=== PATIENT | female | born 1980 | race Caucasian/White ===

== ENCOUNTER 2019-02-28 13:57 | Emergency (ER) | payer SELFPAY ==
[~2019-02-28] VITALS: Ht 154.9 cm; Wt 73.0 kg
== END 2019-02-28 14:07 | disposition home or self-care (01) ==
LOC: ED 13:57
DX: M25.571 Pain in right ankle and joints of right foot (principal)

== ENCOUNTER 2019-11-16 14:31 | Emergency (ER) | payer OTHER ==
[~2019-11-16] VITALS: Ht 149.9 cm; Wt 77.1 kg
[~2019-11-16 14:31] MED LIST: LAMICTAL100 MG PO; LITHOBID300 MG PO; PRAZOSIN HCL2 MG PO
[2019-11-16] MEDS ORDERED: REMERON45 M1 PO (14:38)
== END 2019-11-16 14:46 | disposition home or self-care (01) ==
LOC: ED 14:31
DX: R05 Cough (principal)

== ENCOUNTER 2020-01-03 05:35 | Day surgery (SDC) | payer OTHER ==
[~2020-01-03] VITALS: Ht 149.9 cm; Wt 77.1 kg
[~2020-01-03 05:35] MED LIST changes: +KLONOPIN0.5 MG PO; +REMERON45 M1 PO
[2020-01-03] MEDS ORDERED: VENTOLIN HFA18 GM INH (05:52)
--- NOTE | 2020-01-03 06:13 | NUR ---
PT TEARFUL, STATES FEELING "ANXIOUS." SIG OTHER AT BEDSIDE. PT PROVIDED TISSUES AND REASSURED. CALL LIGHT WITHIN REACH.
--- NOTE | 2020-01-03 07:59 | NUR ---
PT TEARFUL I ENTERED HER RM. PT STATED SHE HAS ANXIETY ISSUES, AND NEVER LEAVES HER HOME. PT HAS HAD PREVIOUS SURGERIES, WILL RETURN SHORTLY. GAVE ENCOURAGEMENT TO PT, SHE ALLOWED ME TO PRAY FOR HER. WILL CONTINUE TO FOLLOW NEEDED
--- NOTE | 2020-01-03 08:39 | NUR ---
PT RESTING IN BED WITH FLUIDS INFUSING VIA PUMP. PT STATES SHE WOULD LIKE TO USE THE RESTROOM. PUMP UNPLUGGED FROM WALL AND PT ASSISTED TO BATHROOM. PT BACK TO BED, PUMP PLUGGED IN AND TX PROVIDED NEW WARM BLANKETS. CALL LIGHT WITHIN REACH. SIG OTHER AT BEDSIDE.
--- NOTE | 2020-01-03 09:40 | NUR ---
PT CONT TO REST IN BED, WATCHING TV WITH SPOUSE AT BEDSIDE. PT IV WNL, PT DOES NOT COMPLAIN OF ANY BURNING/DISCOMFORT AT INSERTION SITE. PT DOES STATE SKIN FEELS "DRY" ABOVE OPSITE, PROVIDED SMALL AMOUNT OF LOTION TO HELP. CALL LIGHT WITHIN REACH.
--- NOTE | 2020-01-03 10:48 | NUR ---
CHECKED PATIENT. PATIENT SLEEPING. DID NOT WAKE PATIENT.
--- NOTE | 2020-01-03 11:45 | NUR ---
ASSISTED UP TO BR AND BACK TO BED. IV PATENT, INFUSION COMPLETE.
--- NOTE | 2020-01-03 11:52 | NUR ---
LAB IN TO DRAW BLOOD.
--- NOTE | 2020-01-03 13:25 | NUR ---
PT RESTING IN BED, DENIES ANY NEEDS AT THIS TIME. CALL LIGHT WITHIN REACH, SIG OTHER OUT OF ROOM.
--- NOTE | 2020-01-03 15:26 | NUR ---
01/03/20 1526 Sheets,Ambika 1517 PT ARRIVED TO PACU ON 6L VIA MASK, RESP EVEN AND UNLABROED WITH JAW THRUST TO MAINTAIN AIRWAY AND ORAL AIRWAY IN PLACE. VSS.
--- NOTE | 2020-01-03 16:13 | NUR ---
PT ARRIVES TO DS RM 4 FROM PACU DROSWSY, EASY TO AROUSE WITH VERBAL STIMULI. PT RESP EVEN AND UNLABORED, SATS GREATER THAN 94% ON 2L NC. PT STATES CHEST "FEELS BETTER" AFTER BREATHING TREATMENT. PT DENIES NAUSEA. RATES PAIN IN ABD /10 "IT HURTS." SCD'S IN PLACE AND PUMPING. CALL LIGHT WITHIN REACH. PT ASKS ABOUT SIG OTHER. SIG OTHER IS NOTIFIED OF PT BACK TO RM.
[2020-01-03] MEDS ORDERED: NORCO 10-325 T1 EACH PO (16:37)
--- NOTE | 2020-01-03 17:08 | NUR ---
PT RESTING IN BED WITH SIG OTHER AT BEDSIDE. CUCO OBRIEN REMAINS ON WARM. PT DENIES ANY NAUSEA, TOLERATES CRACKERS AND WATER. PT RATES PAIN 8/10 IN RUQ SITES, MEDICATED PER EMAR. PT PROVIDED JELLO PER REQUEST. PT ENCOURAGED TO USE CALL LIGHT WITH URGE TO VOID. CALL LIGHT WITHIN REACH.
--- NOTE | 2020-01-03 17:28 | NUR ---
PT UP TO BATHROOM WITH RN ASSIST. STEADY GAIT. PT ABLE TO VOID 350 MLS YELLOW URINE WITH NO PROBLEMS. PT BACK TO RM 5, IV REMOVED WNL, TIP IN TACT. PT DRESSES SELF WITH SIG OTHER IN , INSTRUCTED TO OPEN CURTAIN WHEN FINISHED.
--- NOTE | 2020-01-03 17:30 | NUR ---
DC INSTRUCTIONS GIVEN IN PRESENCE OF PT AND SIG OTHER. HARD COPY PAIN PRESCRIPTION GIVEN TO PT IN DC FOLDER. ALL QUESTIONS ADDRESSED. PT DC'S VIA WC TO MAIN ENTRANCE OF HOSPTIAL HOME WITH SIG OTHER.
--- NOTE | 2020-01-04 06:47 | OR ---
[facility] [address] [place], [place] [address] Signed DATE OF OPERATION: 01/03/2020 SURGEON: Leonarda Nassar MD PREOPERATIVE DIAGNOSIS: Cholecystitis with cholelithiasis (19 mm, 9 mm). POSTOPERATIVE DIAGNOSIS: Cholecystitis with cholelithiasis (19 mm, 9 mm). PROCEDURE: Laparoscopic cholecystectomy with intraoperative cholangiogram. ESTIMATED BLOOD LOSS: None. FINDINGS: Reshma indeed had two stones in her gallbladder. She had chronically inflamed and thickened gallbladder wall. Intraoperative cholangiogram was unremarkable. INDICATIONS: Reshma is a 39-year-old female, who came 2 years ago with significant loose neon green stool within 20 to 30 minutes after eating. She said that is probably the worst. She had been to her primary care provider. She had an ultrasound showing one 19 mm and one 9 mm stone in the neck of her gallbladder. They did not move. The gallbladder at that time was not particularly thickened and the common bile duct was unremarkable. She has had ongoing significant daily symptoms. She finally was asked to come back and see me with respect to the above. She came into the office with her fiance. I gave them a brochure on the gallbladder. We looked that carefully page by page. They understand the location and function of the gallbladder. We discussed laparoscopic versus open cholecystectomy. We also reviewed the expected intraop and postop course. We did review the risks including, but not limited to bleeding, infection, scarring, change in contour of the skin, damage to bowel, damage to main bile duct, incisional hernias, and other unforeseen comorbidities. She had expressed understanding and wished to proceed. PROCEDURE NOTE: I met with Reshma this morning in our preop area. Her potassium remained low. Consequently, we moved her to the end of our day and we gave her 40 mEq IV potassium throughout the morning. Repeat potassium was up at 3.8. After answering all Reshma's questions, we had taken her into the operating room and placed in the supine position. Electronically Signed By: LEONARDA NASSAR MD 01/04/20 0647 PATIENT NAME: RESHMA MILLER OPERATIVE REPORT DATE OF : 82 REPORT #: [id number] PHYSICIAN: LEONARDA NASSAR MD PCP: NATALIA BRYANT PA-C REPORT IS CONFIDENTIAL AND NOT TO BE RELEASED WITHOUT AUTHORIZATION [facility] [address] [place] [id number] Signed She was placed under general endotracheal tube anesthesia. She was given her preoperative antibiotics along with subcutaneous heparin. SCDs were utilized. She was then prepped and draped in the usual sterile fashion. After this, all trocars were placed in the usual positions under direct visualization of camera without difficulty. The gallbladder was grasped and elevated in the right upper quadrant. It was mildly thickened. She had some mild inflammatory changes down around the neck of the gallbladder. We had taken pictures throughout for photodocumentation. The area of the cystic duct was cleared bluntly with a [place] dissector. The intraoperative cholangiocatheter was inserted into the cystic duct. An intraoperative cholangiogram was then performed and found to be unremarkable. We secured the cystic duct stump with a PDS Endoloop and 2 clips were placed on the cystic duct stump to ilia its location. We had used two clips to secure the cystic artery. It was divided and then the gallbladder was carefully removed from the gallbladder fossa with the help of the cautery and placed into an EndoCatch bag. The right upper quadrant was irrigated and suctioned out until clear. We used our laparoscopic suturing device to pass 0 Vicryl suture on either side of the fascia at the subxiphoid trocar site. This was tied down to close this fascia primarily. After this, all the gas was allowed to escape and all the trocars were removed along with the gallbladder. The gallbladder was opened on the back table by our circulating nurse. A picture was taken for photodocumentation. We closed the fascia of the supraumbilical trocar site with interrupted simple and [id number] 0 Vicryl suture. Local anesthetic was injected into all trocar sites. Each trocar site was irrigated and suctioned out until clear. The dermis of each trocar site was closed with interrupted 3-0 subcuticular Monocryl sutures. We utilized 5-0 fast absorbing plain gut suture to close the skin at the supraumbilical trocar site. Dry gauze and tape were then applied to all incisions. Reshma was awakened from her anesthesia, extubated in the OR, and taken to recovery room in stable condition. Leonarda Nassar MD ALB/MODL /[id number] cc: MD Natalia Day PA-C Electronically Signed By: LEONARDA NASSAR MD 01/04/20 0647 PATIENT NAME: RESHMA MILLER OPERATIVE REPORT DATE OF : 82 REPORT #: [id number] PHYSICIAN: LEONARDA NASSAR MD PCP: NATALIA BRYANT PA-C REPORT IS CONFIDENTIAL AND NOT TO BE RELEASED WITHOUT AUTHORIZATION [address] [place], [place] [address] Signed Copies: LEONARDA NASSAR MD, CHLOE K PA-C ~ Electronically Signed By: LEONARDA NASSAR MD 01/04/20 0647 PATIENT NAME: RESHMA MILLER OPERATIVE REPORT DATE OF : 82 REPORT #: [id number] PHYSICIAN: LEONARDA NASSAR MD PCP: NATALIA BRYANT PA-C REPORT IS CONFIDENTIAL AND NOT TO BE RELEASED WITHOUT AUTHORIZATION
--- NOTE | 2020-01-08 15:33 | PATH ---
[facility] [address] [facility] [place], [place] [address] Signed SPECIMEN(S): A GALLBLADDER AND STONES SPECIMEN SOURCE: A. GALLBLADDER AND STONES CLINICAL HISTORY: Cholelithiasis. FINAL PATHOLOGIC DIAGNOSIS: Gallbladder, cholecystectomy: - Mild chronic cholecystitis. - Cholelithiasis. - Minimal cholesterolosis. LJA:cml:C2NR MICROSCOPIC EXAMINATION: Histologic sections of all submitted blocks are examined by light microscopy. These findings, together with the gross examination, support the pathologic diagnosis. GROSS DESCRIPTION: The specimen, labeled "LW, gallbladder with stones per requisition," is received in formalin and consists of Specimen: Open gallbladder. Dimensions: 7.5 x 2.7 x 1.6 cm. Serosa: Smooth with attached adipose tissue. Cystic Duct: Unobstructed. Calculi: Two yellow bosselated calculi ranging from 2.6 cm to 1.0 cm. Mucosa: Velvety green. Wall thickness: 0.4-0.5 cm. Lymph node: No pericystic lymph nodes are grossly identified. Additional: None. Adjunct Political Science Instructor sections are submitted in cassette (A1). AT (under the direct supervision of a pathologist) The Gross Description was prepared using a voice recognition system. The report was reviewed for accuracy; however, sound-alike word errors, addition and/or deletions may occur. If there is any question about this report, please contact Client Services. PERFORMING LABORATORY: The technical component was performed by [employer], Orin Lagunas, PATIENT NAME: ZACK MILLER PATHOLOGY DATE OF : 82 REPORT #: [id number] PHYSICIAN: JAMES NESS PCP: ABISAI BRYANT PA-C REPORT IS CONFIDENTIAL AND NOT TO BE RELEASED WITHOUT AUTHORIZATION [facility] [address] [place], [place] [address] [place] [address] (Hospital Administrative Assistant: Suzi Cao MD; CLIA# [id number]). Professional interpretation was performed by [facility], [address] [address] (CLIA# [id number]). Diagnostician: Markell Steward MD Pathologist Electronically Signed 01/08/2020 Copies: ~ PATIENT NAME: ZACK MILLER PATHOLOGY DATE OF : 82 REPORT #: [id number] PHYSICIAN: JAMES NESS PCP: ABISAI BRYANT PA-C REPORT IS CONFIDENTIAL AND NOT TO BE RELEASED WITHOUT AUTHORIZATION
== END 2020-01-03 17:40 | disposition home or self-care (01) ==
LOC: DS 05:35
PROVIDERS: Colon & Rectal Surgery
PROC: BF13YZZ Fluoroscopy of Gallbladder and Bile Ducts using Other Contrast (ICD-10-PCS; 2020-01-03)
PROC: 0FT44ZZ Resection of Gallbladder, Percutaneous Endoscopic Approach (ICD-10-PCS; principal; 2020-01-03 06:45)
DX: K80.10 Calculus of gallbladder with chronic cholecystitis without obstruction (principal); E87.6 Hypokalemia; E78.5 Hyperlipidemia, unspecified; E66.9 Obesity, unspecified; F31.9 Bipolar disorder, unspecified; J45.909 Unspecified asthma, uncomplicated; M79.7 Fibromyalgia; R19.7 Diarrhea, unspecified; F43.10 Post-traumatic stress disorder, unspecified; Z79.899 Other long term (current) drug therapy; Z88.6 Allergy status to analgesic agent; Z91.040 Latex allergy status; Z68.35 Body mass index [BMI] 35.0-35.9, adult; Z87.891 Personal history of nicotine dependence
CPT/HCPCS: 00790; 36415; 74300; 80048; 80053; J0690; J1100; J1170; J1644; J1885; J2001; J2250; J2405; J2704; J3010; J3480; J7060; J7121; Q9967

== ENCOUNTER → 2023-05-08 | Emergency (ER) | payer OTHER ==
[~2023-05-08] VITALS: Ht 149.9 cm; Wt 62.1 kg
[~2023-05-08] MED LIST changes: +NORCO 10-325 T1 EACH PO; +VENTOLIN HFA18 GM INH
[2023-05-08 11:00] VITALS: BP 114/66
--- NOTE | 2023-05-09 22:32 | EKG ---
[facility] [address] [facility] [place] [address] Signed Normal sinus rhythm Possible Anterior infarct , age undetermined Abnormal ECG No previous ECGs available Confirmed by Khurram Wood MD () on 05/09/2023 10:31:46 PM Electronically Signed By: KHURRAM WOOD MD 05/09/232231 PATIENT NAME: ZACK MILLER Electrocardiogram DATE OF : 82 PHYSICIAN: KHURRAM WOOD MD REPORT #: [id number] REPORT IS CONFIDENTIAL AND NOT TO BE RELEASED WITHOUT AUTHORIZATION
== END ==
LOC: ED 07:51
DX: R26.81 Unsteadiness on feet (principal); T43.595A Adverse effect of other antipsychotics and neuroleptics, initial encounter; Z87.891 Personal history of nicotine dependence; Z88.6 Allergy status to analgesic agent; Z91.040 Latex allergy status; Z79.899 Other long term (current) drug therapy
CPT/HCPCS: 36415; 70450; 70496; 70498; 70551; 71045; 80053; 80175; 80178; 84703; 85025; 85610; 85730; 93005; 93010; 99285-25; Q9967